=== PATIENT | female | born 1930 | race Caucasian/White ===

== ENCOUNTER 2017-07-23 18:36 | Emergency (ER) | payer OTHER ==
[~2017-07-23] VITALS: Ht 152.4 cm; Wt 50.3 kg
[2017-07-23 19:01] VITALS: Ht 152.4 cm; Wt 50.3 kg
[2017-07-23 20:11] VITALS: BP 123/76
== END 2017-07-23 20:11 | disposition home or self-care (01) ==
LOC: ED 18:36
DX: S01.112A Laceration without foreign body of left eyelid and periocular area, initial encounter (principal); M19.90 Unspecified osteoarthritis, unspecified site; I10 Essential (primary) hypertension; W18.30XA Fall on same level, unspecified, initial encounter; Y93.89 Activity, other specified; Y92.89 Other specified places as the place of occurrence of the external cause; Y99.8 Other external cause status

== ENCOUNTER 2019-02-19 10:39 | Inpatient (IN) | payer OTHER, MEDICAID ==
[~2019-02-19] VITALS: Ht 134.6 cm; Wt 42.2 kg
[2019-02-19 10:49] VITALS: Ht 134.6 cm; Wt 42.2 kg
--- NOTE | 2019-02-19 10:57 | NUR ---
PT PLACED IN BED 3 FOR EVAL. EKG IN PROGRESS BY CEASAR GENAO.
--- NOTE | 2019-02-19 11:00 | NUR ---
BROUGHT IN BY DAUGHTER,STATED 2 WEEKS AGO DIAGNOSED WITH BRONCHITIS AND STARTED ON ANTIBIOTICS,NO MORE COUGHING,BUT SINCE STARTED TO VOMIT WITH UPPER ABDOMINAL PAIN
[2019-02-19 11:56] LABS: CALCIUM 10.5 mg/dL (8.5-10.1); CARBON DIOXIDE 27.6 mmol/L (21-32); CHLORIDE SERUM 93 mmol/L (98-107); CREATININE SERUM 1.5 mg/dL (0.6-1.0); GLUCOSE SERUM 125 mg/dL (74-106); POTASSIUM SERUM 3.8 mmol/L (3.5-5.1); SODIUM SERUM 132 mmol/L (136-145)
[2019-02-19 12:04] LABS: BASOPHIL % 0.6 % (0-2); RED CELL DISTRIBUTION WIDTH 14.4 % (11.5-14.5)
[2019-02-19 12:07] LABS: ALKALINE PHOSPHATASE 63 U/L (46-116); ALT/SGPT 6 U/L (14-59); AMYLASE 37 U/L (25-115); AST/SGOT 26 U/L (15-37); BILIRUBIN TOTAL 0.85 mg/dL (0.20-1.00); CHOLESTEROL 148 mg/dL (<200); LIPASE 80 IU/L (73-393); T4(THYROXINE) 6.6 ug/dL (4.7-13.3)
[2019-02-19 12:09] LABS: HDL CHOLESTEROL 78 mg/dL (40-60)
[2019-02-19 12:30] LABS: PLATELET COUNT 105 x10^3mcL (130-400)
[2019-02-19 12:35] LABS: microscopic required? NO
--- NOTE | 2019-02-19 12:38 | NUR ---
RESTING IN BED FEELS BETTER, NO VOMITING NOTED IN ER, DID NOT COMPLAIN,FLUIDS IN PROGRESS
[2019-02-19 12:45] LABS: urine erythrocyte NEGATIVE (NEGATIVE)
[2019-02-19 13:03] LABS: AMPHETAMINE QUAL UR NONE DETECTED (See below)
[2019-02-19] MEDS ORDERED: TRAMADOL HCL50 MG PO (13:49)
[2019-02-19] MEDS ORDERED: LEVOTHYROXIN0.075 M2 PO (13:49)
[2019-02-19] MEDS ORDERED: LOSARTAN POTASS50 M1 PO (13:50)
--- NOTE | 2019-02-19 14:02 | NUR ---
RESTING IN BED, NO COMPLAINTS, IV ANTIBIOTICS IN PROGRESS, FOR ADMISSION
[2019-02-19 14:23] LABS: T3 TOTAL 0.58 ng/mL
[2019-02-19 14:27] LABS: FREE T4 1.05 ng/dL (0.76-1.46); FREE THYROXINE INDEX 2.7 ug/dL (1.4-4.5); T4(THYROXINE) 7.6 ug/dL (4.7-13.3)
[2019-02-19 14:28] LABS: CHOLESTEROL/HDL RATIO 1.8
[2019-02-19 16:03] VITALS: BP 146/76
--- NOTE | 2019-02-19 16:19 | NUR ---
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 LUNG SOUND DIM LUCILA BASE, DENY ANY SOB AT THIS MOMENT, PO2 955 IN ROOM AIR, PT IS ON TELE 7, NSR WITH PVC, DENY ANY CHEST PAIN OR DISCOMFORT, BOWEL SOUND PRESENT ALL 4 QUADRANTS, NO DISTENTION, NO TENDER. PEDAL PULSE PRESENT BOTH FEET, NO EDEMA, IV AT RIGHT FA,NO LEAKING, NO INFILTRATION. ALL ADLS ASSIST, ALL NEED MET, CALL LIGHT IN REACH, WILL CONTINUE TO MONITOR.
--- NOTE | 2019-02-19 17:02 | NUR ---
ASSUME CARE FROM CHENTE GORMAN, PT IN NO ACUTE DISTRESS, FAMILY AT BEDSIDE, RESP EVEN AND NON-LABORED, REPORT NO PAIN/DISCOMFORT/CP, REPORT NO N/V/D AT THIS TIME, SAFETY PRECAUTION FOLLOWED, ALL NEED ADDRESSED AT THIS TIME, WILL CONTINUE TO MONITOR
[2019-02-19 17:46] VITALS: BP 151/72
--- NOTE | 2019-02-19 18:09 | NUR ---
PT IN BED, AXOX3, PERLLA, VERBAL, ABLE TO MAKE NEEDS KNOWN, FAMILY AT BEDSIDE, NO FACIAL DROOP/SLURRED SPEECH, PERRLA, RESP AND NON-LABORED, CHEST RISE SYMMETRICALLY, DENIED CP/PAIN/PRESSURE, DENIED N/V/D/DIZZINESS, ABD FLAT AND NON-TENDER TO TOUCH, PALP PULSES, CAP REFILL < 3 SECS, GEN. WEAKNESS, ASSIST BPR, CONTINENT, IV PATENT AND INFUSING WELL, DRESSING CDI, SKIN C/W/D, TELE #7, NST W/ PVC, ALL NEEDS ADDRESSED AT THIS TIME, TORRES LIGHT IN REACH, BED AT LOW POSITION, RAILS X 2, WILL ENDROSE TO ONCOMING RN
--- NOTE | 2019-02-19 20:00 | NUR ---
PT. AWAKE, ALERT, ORIENTED TO SELF AND PLACE. DENIES HEADACHE OR DIZZINESS. SPEECH CLEAR BUT SLOW. BREATH SOUNDS CLEAR THROUGHOUT LUNG CASTILLO, RESP. EVEN, UNLABORED. NO SOB NOTED. PT. ON RA. NSR ON TELE #7. DENIES CHESTPAIN, NO EDEMA TO EREMITIES. PEDAL PULSES STRONG BLE. IVF NS @100CC/HR, SITE INTACT. BED LOW LAYING WIH CALL LIGHT IN REACH. FAMILY AT BEDSIDE.
[2019-02-19 20:36] VITALS: BP 153/78
[2019-02-20] VITALS (7 sets, daily range): BP systolic 124–178; BP diastolic 62–91
--- NOTE | 2019-02-20 00:23 | NUR ---
PT. C/O NAUSEA AFTER RETURNING TO BED FROM THE RESTROOM. PRN ZOFRAN, IVP, GIVEN ORDERED. WILL MONITOR. DAUGHTER REMAINS AT BEDSIDE. CALL LIGHT WITHIN REACH.
--- NOTE | 2019-02-20 02:09 | NUR ---
PT. RESTING QUIETLY, EYES CLOSED, APPEARS TO BE SLEEPING. DAUGHTER REMAINS AT BEDSIDE. CALL LIGHT WITHIN REACH.
[2019-02-20 06:36] LABS: BASOPHIL % 0.4 % (0-2)
[2019-02-20 07:10] LABS: PLATELET COUNT 76 x10^3mcL (130-400); RED CELL DISTRIBUTION WIDTH 14.6 % (11.5-14.5)
--- NOTE | 2019-02-20 07:10 | NUR ---
RECEIVED PT FROM NIGHT NURSE. PT IS LAYING DOWN IN BED WITH HOB UP RESTING WITH EYES CLOSED. PT LOOKS TO BE IN NO ACUTE DISTRESS AT THIS TIME. FAMILY MEMBER AT BEDSIDE. TELE MONITOR PRESENT. RESPIRATIONS EVEN AND UNLABORED ON ROOM AIR. IV SITE PATENT WITH NO SIGNS OF ERYTHEMA OR SWELLING WITH IV FLUIDS INFUSING. BED IN LOWEST POSITION, CALL LIGHT WITHIN REACH. WILL CONTINUE TO MONITOR.
[2019-02-20 07:16] LABS: CALCIUM 9.8 mg/dL (8.5-10.1); CARBON DIOXIDE 26.4 mmol/L (21-32); CHLORIDE SERUM 104 mmol/L (98-107); CREATININE SERUM 1.1 mg/dL (0.6-1.0); GLUCOSE SERUM 90 mg/dL (74-106); SODIUM SERUM 138 mmol/L (136-145)
--- NOTE | 2019-02-20 08:30 | NUR ---
PT COMPLAINING OF 8/10 PAIN TO RUQ OF THE ABD AND IS REQUESTING PAIN MEDICATION. PT STATES NOT HAVING A BOWEL MOVEMENT FOR [address] JOSEPH IS REQUESTING FOR PT TO HAVE MEDICAITON TO HELP HAVE A BM. WILL MEDICATE FOR PAIN ACCORDING TO EMAR.
--- NOTE | 2019-02-20 15:10 | NUR ---
PT IS LAYING DOWN IN BED WITH HOB UP RESTING. PT LOOKS TO BE IN NO ACUTE DISTRESS AT THIS TIME AND DENIES ANY PAIN. IV SITE PATENT WITH NO SIGNS OF ERYTHEMA OR SWELLING WITH IV FLUIDS INFUSING. RESPIRATIONS EVEN AND UNLABORED ON ROOM AIR. FAMILY MEMBERS AT BEDSIDE. CALL LIGHT WITHIN REACH. WILL CONTINUE TO MONITOR.
--- NOTE | 2019-02-20 18:55 | NUR ---
PT IS LAYING DOWN IN BED WITH HOB UP RESTING. ECHO COMPLETED. PT LOOKS TO BE IN NO ACUTE DISTRESS AT THIS TIME AND DENIES ANY PAIN. IV SITE PATENT WITH NO SIGNS OF ERYTHEMA OR SWELLING WITH IV FLUIDS INFISNG. FAMILY MEMBERS AT BEDSIDE. CALL LIGHT WITHIN REACH. RESPIRATIONS EVEN AND UNLABORED ON ROOM AIR. WILL ENDORSE TO ONCOMING SHIFT.
--- NOTE | 2019-02-20 19:25 | NUR ---
RECEIVED PT FROM PREVIOUS SHIFT. AAO. ABLE TO MAKE NEEDS KNOWN. LATVIAN SPEAKING. TELE #7 SHOWING NSR, DENIES CP. DENIES PAIN. C/O ABD DISCOMFORT, PER PT DAUGHTER, PT USUALLY HAS DAILY BM BUT HAS NOT BEEN ABLE TO FOR A FEW DAYS NOW. DENIES N/V. ABD SOFT/ROUND, SLIGHTLY DISTENDED. BREATHING E/U ON RA. DENIES SOB. IV SITE CDI, NO ERYTHEMA OR EDEMA NOTED. CALL LIGHT WITHIN REACH. SAFETY MEASURES IN PLACE. WILL CONTINUE TO MONITOR.
--- NOTE | 2019-02-20 20:35 | NUR ---
PT C/O NAUSEA, MEDICATED PER EMAR.
--- NOTE | 2019-02-21 00:46 | NUR ---
PT RESTING IN BED WITH EYES CLOSED. BREATHING E/U. DAUGHTER AT BEDSIDE. NO S/S ACUTE DISTRESS. SAFETY MEASURES IN PLACE. CALL LIGHT WITHIN REACH. WILL CONTINUE TO MONITOR.
[2019-02-21 06:20] VITALS: BP 157/74
[2019-02-21 06:55] LABS: BASOPHIL % 0.9 % (0-2)
[2019-02-21 07:00] LABS: PLATELET COUNT 66 x10^3mcL (130-400); RED CELL DISTRIBUTION WIDTH 14.8 % (11.5-14.5)
[2019-02-21 07:06] LABS: CALCIUM 9.5 mg/dL (8.5-10.1); CHLORIDE SERUM 103 mmol/L (98-107); CREATININE SERUM 1.4 mg/dL (0.6-1.0); GLUCOSE SERUM 97 mg/dL (74-106); MAGNESIUM 1.3 mg/dL (1.8-2.4); PHOSPHOROUS 2.5 mg/dL (2.5-4.9); POTASSIUM SERUM 3.6 mmol/L (3.5-5.1); SODIUM SERUM 137 mmol/L (136-145)
--- NOTE | 2019-02-21 07:15 | NUR ---
RECEIVED PT FROM NIGHT NURSE. PT IS LAYING DOWN IN BED WITH HOB UP RESTING. PT LOOKS TO BE IN NO ACUTE DISTRESS AT THIS TIME AND DENIES ANY PAIN. RESPIRATIONS EVEN AND UNLABORED ON ROOM AIR. IV SITE PATENT WITH NO SIGNS OF ERYTHEMA OR SWELLING WITH IV FLUIDS INFUSING. TELE MONITOR PRESENT. FAMILY MEMBER AT BEDSIDE. CALL LIGHT WITHIN REACH. WILL CONTINUE TO MONITOR.
[2019-02-21 08:08] VITALS: BP 161/77
[2019-02-21 11:54] VITALS: BP 146/75
--- NOTE | 2019-02-21 14:15 | NUR ---
PT WALKED TO BATHROOM WITH FAMILY MEMBER. FAMILY MEMBER STATES THAT PT HAD A SMALL HARD BOWEL MOVEMENT. PT WALKED BACK TO BED AND IS SITTING AT THE EDGE OF THE BED AT THIS TIME. PT LOOKS TO BE IN NO ACUTE DISTRESS AT THIS TIME. CALL LIGHT WITHIN REACH. WILL CONTINUE TO MONITOR.
--- NOTE | 2019-02-21 14:30 | NUR ---
DC'ED IV FLUIDS ORDERED.IV H/L AT THIS TIME. NO SIGNS OF ERYTHEMA OR SWELLING. IV FLUSHING.
[2019-02-21 16:40] VITALS: BP 137/90
--- NOTE | 2019-02-21 19:34 | NUR ---
RECEVIED PT FROM PREVIOUS SHIFT. PT A/OX3. DENIES PAIN. DENIES SOB ON RA. IV PATENT, SALINE LOCKED. FAMILY AT BEDSIDE. CALL LIGHT WITHIN REACH, BED IN LOW POSITION. WILL CONTINUE TO MONITOR.
[2019-02-21 20:44] VITALS: BP 114/50
--- NOTE | 2019-02-22 00:45 | NUR ---
PT RESTING IN NO ACUTE DISTRESS. RR EVEN AND UNLABORED. CALL LIGHT WITHIN REACH, BED IN LOW POSITION. WILL CONTINUE TO MONITOR.
--- NOTE | 2019-02-22 04:00 | NUR ---
PT C/O ABD PAIN. NORCO PROVIDED PRN PER EMAR. WILL MONITOR
[2019-02-22 06:04] VITALS: BP 145/73
--- NOTE | 2019-02-22 07:30 | NUR ---
RECEIVED PATIENT IN BED, APPEARS TO BE RESTING WELL. DAUGHTER AT BEDSIDE. PER PATIENT'S DAUGHTER PT DID NOT SLEEP WELL LAST NOC, BUT DID GO TO SLEEP AROUND 4 AM WHEN NURSE MEDICATED PATIENT. RESP EVEN AND UNLABORED, LUNGS CLEAR ON ROOM AIR. HL PATENT RT F/A. NO EDEMA NOTED. NO ACUTE DISTRESS NOTED.
--- NOTE | 2019-02-22 08:01 | NUR ---
PATIENT SITTING UP IN BED EATING BREAKFAST TRAY. NO N/V BUT C/O ABD PAIN PER PATIENT'S DAUGHTER WHO IS AT BEDSIDE TO TRANSLATE 5/10 ON THE PAIN SCALE. MEDCIATED WITH ULTRAM PO AT THIS TIME. WILL MONITOR FOR EFFECT.
[2019-02-22 08:06] VITALS: BP 164/78
--- NOTE | 2019-02-22 09:00 | NUR ---
PATIENT IS BACK IN BED AWAKE AND ALERT FORGETFUL AT TIMES. GOSIA IS AT BEDSIDE AND TRANSLATED FOR PATIENT. PER PATIENT HER ABD PAIN IS NOW GONE. WILL CONTINUE TO MONITOR.
--- NOTE | 2019-02-22 12:55 | NUR ---
PATIENT'S PLAN OF CARE WAS DISCUSSED AND REVIEWED WITH LEASE OPERATOR:STEPHANIE EDWARDS. I HAVE REVIEWED THE DATA COLLECTION BY LEASE OPERATOR (NAME):STEPHANIE EDWARDS. ENTERED ON (DATE/TIME):02/22/19. I CONCUR WITH THE DATA AND ANY EXCEPTIONS OR COMMENTS ARE LISTED BELOW:
--- NOTE | 2019-02-22 14:15 | NUR ---
Initial Nutrition Assessment Dx: PNA, CP r/o ACS PMHx: HTN, Hypothyroidism, Dementia, PNA PSHx: Cholecystectomy Labs: (02/21) Cr 1.4H, H/H 8.6L/26L Meds: Colace, Cozaar, Lactinex, Lactulose, Bethel, Protonix, NSIV, Synthroid, Tylenol, Ultram, Zofran, Zosyn Diet: Cardiac w/mechanical soft texture PO Intake: (02/22) B: 50% (02/21) B/L: 40% D: 80% Ht: 53" (135 cm) Wt: 93# (42.2 kg) BMI: 23.3 (WNL) IBW: 83# %IBW: 112% UBW: 100# Age: 88 y/o elderly female Food Allergies: NKFA Skin: Intact Hakeem: 19 Edema: None GI: Last BM x 4 (02/22) loose stools Per H&P, pt. admitted with L sided CP associated with 5# weight loss x 1 week, COB, loss of appetite, abdominal pain, and dizziness. Pt. continues with abdominal pain without N/V at this time and fair/improved appetite since admission. Endorses 4-5# weight loss x 1 week d/t lack of appetite and N/V prior to admission per pt. family member. Requesting for oral supplement; will place under recommendations to prevent further weight loss. Updated food preferences and will provide as able. T: Appears underweight/malnourished, NVD and poor PO >3 days Problem with: No c/o N/V/C +loose stools Problems with: Chewing: N Swallowing: N Current appetite: Fair Recent wt change: None %wt change: N/A Vitamin/Supplement use: Ferrous sulfate, Vit B12 Special diet at home: Regular, pt. cooks meals for self at home daily Physical activity: Walking on a regular basis Education: Notified pt. and family of Cardiac diet and the associated restrictions. Declined further diet education at this time. Will re-attempt diet education on following visit. Estimated Nutritional Needs Based on actual body weight 42.2 kg: Energy: 4629-8329 kcal/d (25-30 kcal/kg-older adult maintenance) Protein: 42-51 g/d (1.0-1.2 g/kg)-older adult maintenance and preservation of lean body mass Fluid: 110-1300 ml/d (1 ml/kcal-fluid balance) or per doctor Nutrition Diagnosis 1. Inadequate PO intake r/t reported poor appetite and GI tract dysfunction AEB pt. statements of continued abdominal pain since admission and documented PO intake meeting <75% estimated kcal and protein needs. Intervention/RD recommendations 1. Continue Cardiac diet with mechanical soft texture. Add Ensure Enlive BID for additional supplementation for poor PO intake to add 700 kcal and 40 g protein. Monitor/Evaluate Goal: PO intake at least 75% of estimated needs Monitor: PO intake, Labs, GI function, diet tolerance F/U in 3-5 days as moderate risk (02/25-02/27)
--- NOTE | 2019-02-22 14:53 | NUR ---
PATIENT IS IN BED, AWAKE ALERT, BED ALARM ON. NO CHANGE IN CONDITION NOTED. ASSISTED TO THE BATHROOM PRN.
[2019-02-22 16:38] VITALS: BP 120/58
--- NOTE | 2019-02-22 19:33 | NUR ---
RECEIVED PT FROM PREVIOUS SHIFT. PT A/OX3. DENIES PAIN. NO S/S OF SOB ON RA. IV PATENT, SALINE LOCKED. FAMILY AT BEDSIDE. CALL LIGHT WITHIN REACH, BED IN LOW POSITION. WILL CONTINUE TO MONITOR.
[2019-02-22 21:25] VITALS: BP 117/58
--- NOTE | 2019-02-23 00:21 | NUR ---
PT RESTING IN NO ACUTE DISTRESS. RR EVEN AND UNLABORED. CALL LIGHT WITHIN REACH, BED IN LOW POSITION. WILL CONTINUE TO MONITOR.
[2019-02-23 06:13] VITALS: BP 150/70
--- NOTE | 2019-02-23 06:14 | NUR ---
IV LEAKING, REMOVED. NEW IV PLACED TO RFA. ZOSYN RESUMED WITH NO S/S OF INFILTRATION. WILL CONTINUE TO MONITOR.
--- NOTE | 2019-02-23 07:31 | NUR ---
PHYSICAL THERAPY DAILY NOTES CO-SIGN All documentation done by the Payroll Administrative Assistant for 02/21/19 has been reviewed. I agree with the documentation. Reviewed/Co-Signed by: Yanet Contreras PT Documentation Done by:TIARA HAWK PTA
--- NOTE | 2019-02-23 08:09 | NUR ---
AT 0710 - RECEIVED PATIENT FROM NIGHT NURSE. AWAKE, ALERT. APPEARS OREITNED TO PERSON AND PLACE. FAMILY MEMBER AT BEDSIDE. PATIENT RECEIVING BREATHING TREATMENT . AT 0750 - SLEEPING AT THIS TIME. RESPIRATIONS REGULAR AND ON ROOM AIR.
[2019-02-23 08:10] VITALS: BP 160/71
[2019-02-23] MEDS ORDERED: ZITHROMAX250 MG PO (08:52)
--- NOTE | 2019-02-23 09:34 | NUR ---
RECEIVED DISCHARGE ORDERS. PATIENT AND DAUGHTER AWARE OF PLAN. PATIENT SITTING IN CHAIR. HAD AMBULATED TO BATHROOM WITH DAUGHTER.
[2019-02-23 09:49] VITALS: BP 128/67
--- NOTE | 2019-02-23 10:11 | NUR ---
PRINTED DISCHARGE INSTRUCTIONS GIVEN AND EXPLAIEND TO PATIENT'S DAUGHTER. PRESCRIPTION PROVIDED. IV CATHETER REMOVED INTACT. PREPARED FOR DISCHARGE.
--- NOTE | 2019-02-23 11:08 | NUR ---
PATIENT WAS PROVIDED WITH FRONT WHEEL WALKER. DISCHARGED HOME WITH DAUGHTER. TAKEN TO DISCHARGE OFFICE IN WHEELCHAIR BY KEYANNA.
--- NOTE | 2019-02-24 07:48 | NUR ---
PHYSICAL THERAPY DAILY NOTES CO-SIGN All documentation done by the International Sourcing Manager for 02/23/19 has been reviewed. I agree with the documentation. Reviewed/Co-Signed by: Yanet Contreras PT Documentation Done by:TIARA HAWK PTA
== END 2019-02-23 10:59 | disposition home or self-care (01) | DRG 177 ==
LOC: ED 10:39 → DU 13:42 → MU 13:42 → DU 15:39 → MU 02-21 17:57
PROVIDERS: Emergency Medicine; ADMIT Internal Medicine
DX: J69.0 Pneumonitis due to inhalation of food and vomit (principal); N17.0 Acute kidney failure with tubular necrosis; E87.1 Hypo-osmolality and hyponatremia; Z68.1 Body mass index [BMI] 19.9 or less, adult; R11.2 Nausea with vomiting, unspecified; T36.95XA Adverse effect of unspecified systemic antibiotic, initial encounter; F03.90 Unspecified dementia, unspecified severity, without behavioral disturbance, psychotic disturbance, mood disturbance, and anxiety; E83.52 Hypercalcemia; D64.9 Anemia, unspecified; I12.9 Hypertensive chronic kidney disease with stage 1 through stage 4 chronic kidney disease, or unspecified chronic kidney disease; N18.3 Chronic kidney disease, stage 3 (moderate); M19.90 Unspecified osteoarthritis, unspecified site; E03.9 Hypothyroidism, unspecified; Z90.49 Acquired absence of other specified parts of digestive tract; Z98.41 Cataract extraction status, right eye; Z98.42 Cataract extraction status, left eye; Z97.4 Presence of external hearing-aid; Y92.009 Unspecified place in unspecified non-institutional (private) residence as the place of occurrence of the external cause
CPT/HCPCS: 36600; 83880; 84439; 94150; 97116-GP; 97530-GP; C9113; G0378; J1956; J2405; J2543; J7030; J7620; Q0092

== ENCOUNTER 2019-05-24 12:14 | Emergency (ER) | payer OTHER, MEDICAID ==
[~2019-05-24] VITALS: Ht 149.9 cm; Wt 41.7 kg
[~2019-05-24 12:14] MED LIST: LEVOTHYROXIN0.075 M2 PO; LOSARTAN POTASS50 M1 PO; TRAMADOL HCL50 MG PO; ZITHROMAX250 MG PO
[2019-05-24 12:21] VITALS: Ht 149.9 cm; Wt 41.7 kg
[2019-05-24 14:30] VITALS: BP 149/64
== END 2019-05-24 14:30 | disposition home or self-care (01) ==
LOC: ED 12:14
DX: M25.511 Pain in right shoulder (principal); I10 Essential (primary) hypertension; F03.90 Unspecified dementia, unspecified severity, without behavioral disturbance, psychotic disturbance, mood disturbance, and anxiety; Z90.49 Acquired absence of other specified parts of digestive tract
CPT/HCPCS: J1885; Q0092